=== PATIENT | female | born 1995 | race Two or more races ===

== ENCOUNTER 2021-03-08 18:13 | Emergency (ER) | payer OTHER ==
[~2021-03-08] VITALS: Ht 162.6 cm; Wt 90.7 kg
[2021-03-08] MEDS ORDERED: TYLENOL (18:43)
== END 2021-03-08 20:58 | disposition home or self-care (01) ==
LOC: ER 18:13
DX: J06.9 Acute upper respiratory infection, unspecified (principal); U07.1 COVID-19

== ENCOUNTER 2021-03-09 11:18 | Outpatient (CLI) | payer OTHER ==
[~2021-03-09 11:18] MED LIST: TYLENOL
== END 2021-03-09 12:00 | disposition home or self-care (01) ==
LOC: ASH CLINIC 11:18
PROVIDERS: ATTEND Emergency Medicine
DX: Z23 Encounter for immunization (principal); U07.1 COVID-19